=== PATIENT | female | born 1990 | race Caucasian/White ===

== ENCOUNTER 2023-02-15 09:27 | Outpatient (CLI) | payer BC | END 2023-02-15 09:28 | disposition home or self-care (01) | LOC: BICMAMMO 09:27 | PROVIDERS: ATTEND Nurse Practitioner Family | DX: N63.23 Unspecified lump in the left breast, lower outer quadrant (principal); N63.42 Unspecified lump in left breast, subareolar; N60.02 Solitary cyst of left breast | CPT/HCPCS: 77066; G0279 ==